=== PATIENT | female | born 1960 | race Caucasian/White ===

== ENCOUNTER 2023-08-24 08:00 | Outpatient (REF) | payer SELFPAY ==
[2023-09-01 20:50] LABS: Midnight Cortisol <50 ng/dL (<100)
== END 2023-08-24 08:01 | disposition home or self-care (01) ==
LOC: LBN 08:00
PROVIDERS: Visit Provider Internal Medicine Endocrinology, Diabetes & Metabolism
DX: Z68.36 Body mass index [BMI] 36.0-36.9, adult (principal)
CPT/HCPCS: 82530

== ENCOUNTER 2023-08-25 14:04 | Outpatient (REF) | payer SELFPAY ==
[2023-09-01 20:51] LABS: Midnight Cortisol <50 ng/dL (<100)
== END 2023-08-25 14:05 | disposition home or self-care (01) ==
LOC: LBN 14:04
PROVIDERS: Visit Provider Internal Medicine Endocrinology, Diabetes & Metabolism
DX: Z68.36 Body mass index [BMI] 36.0-36.9, adult (principal)
CPT/HCPCS: 82530